=== PATIENT | male | born 1965 | race Caucasian/White ===

== ENCOUNTER 2016-06-12 11:13 | Emergency (ER) | payer BC, OTHER ==
[2016-06-12 11:51] VITALS: BP 183/101
--- NOTE | 2016-06-12 12:23 | UC ---
Abdominal Pain Male HPI - HPI Summary HPI Summary: right side flank pain x 5 days DX WITH KIDNEY STONES AT [facility]. HAVING A FOLLOW UP WITH UROLOGIST IN FEW WEEKS CONT. TO HAVE PAIN , NO FEVER, NO CHILLS, - History of Current Complaint Chief Complaint: UCGU Stated Complaint: PAIN WITH KIDNEY STONE Time Seen by Provider: 06/12/16 11:52 Hx Obtained From: Patient Onset/Duration: Gradual Onset, Lasting Days - 5, Still Present Timing: Constant Severity Initially: Moderate Severity Currently: Moderate Location: Other - RIGHT FLANK Radiates: No Radiates to: Back Character: Aching, Colicy Aggravating Factor(s):: Nothing Alleviating Factor(s): Nothing Associated Signs And Symptoms: Positive: Diaphoresis, Nausea. Negative: Fever, Cough, Chest Pain, Dizzy, Back Pain, Constipation, Blood in Stool, Urinary Symptoms, Decreased Appetite, Vomiting - Allergies/Home Medications Allergies/Adverse Reactions: Allergies Allergy/AdvReac Type Severity Reaction Status Date / Time No Known Allergies Allergy Verified 06/12/16 11:48 Home Medications: Home Medications Hydrocodone-Acetaminophen [Lorcet 5-325 mg] 1 tab PO Q4H PRN 06/12/16 [History Confirmed 06/12/16] Tamsulosin CAP* [Flomax CAP*] 0.4 mg PO DAILY 06/12/16 [History Confirmed ] PMH/Surg Hx/FS Hx/Imm Hx Cardiovascular History Of: Reports: Hypertension - Surgical History Surgical History: Yes Surgery Procedure, Year, and Place: Inguinal Herniorrhaphy as an - Family History Known Family History: Positive: Hypertension - Social History Alcohol Use: Rare Substance Use Type: None Smoking Status (MU): Never Smoked Tobacco Review of Systems Constitutional: Negative Skin: Negative Eyes: Negative ENT: Negative Respiratory: Negative Cardiovascular: Negative Gastrointestinal: Abdominal Pain All Other Systems Reviewed And Are Negative: Yes Physical Exam Triage Information Reviewed: Yes Appearance: Pain Distress, Obese Vital Signs: Initial Vital Signs Temp 97.3 F 06/12/16 11:43 Pulse 100 06/12/16 11:43 Resp 20 06/12/16 11:43 BP 183/101 06/12/16 11:43 Pulse Ox 100 06/12/16 11:43 Vital Signs Reviewed: Yes Eyes: Positive: Conjunctiva Clear ENT: Positive: Normal ENT inspection, Hearing grossly normal, Pharynx normal Neck: Positive: Supple, Nontender, No Lymphadenopathy Respiratory: Positive: Chest non-tender, Lungs clear, Normal breath sounds Cardiovascular: Positive: RRR, No Murmur, Pulses Normal Abdomen Description: Positive: Nontender, Soft. Negative: CVA Tenderness (R), CVA Tenderness (L), Distended, Guarding Bowel Sounds: Positive: Present Abd Pain Male Course/Dx - Course Course Of Treatment: WILL REFILL HYDROCODON FOR PAIN. FOLLOW UP WITH UROLOGIST. HTN : WILL START LISINOPRIL 20 MG DAILY. FOLLOW UP WITH YOUR PCP IN 10 DAYS - Differential Dx/Clinical Impression Provider Diagnoses: KIDNEY STONE. HYPERTENSION Discharge - Discharge Plan Condition: Stable Disposition: HOME Prescriptions: HYDROcodone/ACETAMIN 5-325 MG* [[place] 5-325 TAB*] 1 tab PO Q6H PRN #30 tab MDD 4 PRN Reason: Pain Lisinopril [Zestril 20 MG-] 20 mg PO DAILY #30 tab Patient Education Materials: Kidney Stones (ED), Hypertension (ED)
== END 2016-06-12 12:32 | disposition home or self-care (01) ==
LOC: UCCORT 11:13
DX: N20.0 Calculus of kidney (principal); Z87.442 Personal history of urinary calculi; I10 Essential (primary) hypertension
CPT/HCPCS: 81003; 87086; 99212; G0463

== ENCOUNTER 2016-07-15 10:55 | Day surgery (SDC) | payer BC ==
--- NOTE | 2016-07-11 22:00 | HP ---
ADMITTING HISTORY AND PHYSICAL: DATE OF ADMISSION: 07/15/16 AGE: 50 years, male. ADMISSION DIAGNOSES: 1. Calculus, right proximal ureter. 2. History of right flank pain. 3. Left renal calculus. PLANNED PROCEDURE: Shockwave lithotripsy of right ureteral calculus, possible right stent insertion. SURGEON: Dr. Laurent. HISTORY OF PRESENT ILLNESS: Dimas Álvarez is a 50-year-old gentleman with a history of renal calculi. He had right-sided abdominal and right flank pain and was initially evaluated in [place]. CT scan at that time revealed a 6 mm calculus at the right ureteropelvic junction with mild right hydronephrosis and a nonobstructing left renal calculus. He has been managed conservatively and continues to have a 6 to 7 mm calculus in the proximal right ureter and is now being brought in for management of the same. At some point later on, he will require lithotripsy for the left renal calculus also. PAST MEDICAL HISTORY: Significant for: 1. Hypertension. 2. Renal calculi. PAST SURGICAL HISTORY: Significant for right inguinal hernia surgery as an . MEDICATIONS ON ADMISSION: 1. Lisinopril 20 mg a day. 2. Hydrocodone p.r.n. ALLERGIES: No known drug allergies. FAMILY HISTORY: He has 2 siblings with kidney stones. SMOKING HISTORY: He is a nonsmoker. REVIEW OF SYSTEMS: He denies any chest pain or shortness of breath. There is no history of diabetes mellitus. He is currently being further evaluated by Dr. Rothman for his hypertension, which was poorly controlled when I initially saw him, but actually he was better on his subsequent visit. PHYSICAL EXAMINATION VITAL SIGNS: Reveals a blood pressure of 130/76, pulse of 109 per minute, regular, oxygen saturation 98%. LUNGS: Clear bilaterally. CARDIOVASCULAR: Regular rate and rhythm. S1 and S2. ABDOMEN: Soft with mild right flank tenderness. IMPRESSION: A 50-year-old gentleman with a calculus in the right proximal ureter. Planned procedure is shockwave lithotripsy of right ureteral calculus, possible right stent insertion. CC: Dr. Rothman* [id number]/[facility] #: [id number] [facility]
[~2016-07-15 10:55] MED LIST: Buffered Lidocaine 1% SYRIN* 5 ML/SYR SYRINGE INTRADERM ONE; Famotidine IV* 10 MG/ML 2 ML (20 mg) IV ONE; Metoclopramide TAB* 10 MG PO ONE
[2016-07-15] MEDS ORDERED: Famotidine IV* 10 MG/ML 2 ML (20 mg) ONE (11:19)
[2016-07-15] MEDS ORDERED: Metoclopramide TAB* 10 MG ONE (11:19)
[2016-07-15] MEDS ORDERED: Buffered Lidocaine 1% SYRIN* 5 ML/SYR SYRINGE ONE (11:19)
[2016-07-15] MEDS ORDERED: cefTRIAXone(*) 2 GM ADDV.VIAL IVPB ONE (11:19)
--- NOTE | 2016-07-15 11:41 | RAD ---
HISTORY: Shockwave lithotripsy COMPARISONS: July 03, 2016 VIEWS: Frontal views of the abdomen. FINDINGS: BOWEL: There is a nonspecific bowel gas pattern, with nondilated small bowel gas noted. Again noted are small calculi overlying the left renal parenchymal shadow measuring up to 0.4 cm. CALCULI: These are stable. There is a calculus overlying the right L4 transverse process measuring 0.5 cm which may represent a distal right ureteral stone BONES AND SOFT TISSUES: There are no osseous abnormalities. OTHER FINDINGS: The lung bases are clear. There is no subphrenic gas. IMPRESSION: LEFT NEPHROLITHIASIS WITH QUESTIONABLE DISTAL RIGHT URETERAL STONE
[2016-07-15] MEDS ORDERED: Midazolam* 1 MG/ML 5 ML VIAL (5 MG) ONE (12:40)
[2016-07-15] MEDS ORDERED: Propofol* 10 MG/ML 20 ML BTL IV PUSH ONE (12:40)
[2016-07-15] MEDS ORDERED: Ketorolac INJ* 30 MG/ML 1 ML VIAL ONE (12:40)
[2016-07-15] MEDS ORDERED: Ondansetron INJ* 2 MG/ML VIAL ONE (12:40)
[2016-07-15] MEDS ORDERED: KETAMINE HCL* 50 MG/ML 10 ML VIAL ONE (12:40)
[2016-07-15] MEDS ORDERED: Lidocaine 2% PF * 5 ML VIAL ONE (12:40)
[2016-07-15] MEDS ORDERED: Dexamethasone IV* 4 MG/ML 1 ML (4 MG) ONE (12:40)
[2016-07-15] MEDS ORDERED: fentaNYL* 50 MCG/ML 2 ML VIAL (100 MCG VIAL) ONE ×2 (12:40→13:57)
[2016-07-15 15:48] VITALS: BP 143/96
--- NOTE | 2016-07-15 17:19 | RAD ---
INDICATION: Right ureteral calculus COMPARISON: Similar examination acquired the same day at 1156 hours TECHNIQUE: 3 views the abdomen were obtained at 1620 hours. FINDINGS: Calcification identified in the previous radiograph overlying the right renal collecting system and/or proximal ureter are not seen today. There are no definite calcifications overlying the left renal collecting system or ureter. IMPRESSION: INTERVAL REMOVAL OF RIGHT-SIDED RENAL CALCULI IDENTIFIED ON PREOPERATIVE KUB.
--- NOTE | 2016-07-16 15:58 | OP ---
OPERATIVE REPORT: DATE OF OPERATION: 07/15/16 DATE OF : [birth year] AGE: 50 years. SEX: Male. SURGEON: Ousmane Laurent MD ANESTHESIOLOGIST: Dr. Gandhi ANESTHESIA: General. PRE-OP DIAGNOSIS: Calculus, right proximal ureter. POST-OP DIAGNOSIS: Calculus, right proximal ureter. OPERATIVE PROCEDURES: Shockwave lithotripsy of right ureteral calculus. COMPLICATIONS: None. POSTOPERATIVE CONDITION: Stable. INDICATION: Dimas Álvarez is a 50-year-old gentleman who had initially been evaluated in [facility] over a month ago and was noted to have a 6 mm calculus in the right proximal ureter. He has had s ubsequent imaging since then including x-rays and ultrasound, which revealed a persistent 6 mm calcu carmel in the right proximal ureter in addition to a nonobstructing calculus in the left kidney. He is now being brought in for management of the right ureteral calculus. DESCRIPTION OF PROCEDURE: After induction of general anesthesia, the patient was placed on lithotri psy table in supine position. The calculus in the right proximal ureter was visualized and shockwave lithotripsy was commenced at a rate of 90 shocks per minute. Periodic imaging revealed good locali zation and a total of 1600 shocks were administered. The plan is to obtain a postoperative x-ray to assess the degree of fragmentation. The patient tolerated the procedure satisfactorily and was tra nsferred back to recovery area in stable condition. [id number]/[facility] #: [id number]
== END 2016-07-15 15:55 | disposition home or self-care (01) ==
LOC: OR 10:55
PROVIDERS: ATTEND Urology
DX: N13.2 Hydronephrosis with renal and ureteral calculous obstruction (principal); I10 Essential (primary) hypertension; R00.0 Tachycardia, unspecified
CPT/HCPCS: 74000; A9270-GY; J0696; J1100; J1580; J1885; J2250; J2405; J2704; J3010

== ENCOUNTER 2018-06-28 12:15 | Emergency (ER) | payer BC, OTHER ==
[2018-06-28 13:02] VITALS: BP 180/120
--- NOTE | 2018-06-28 13:21 | UC ---
Back Pain HPI - HPI Summary HPI Summary: RIGHT BACK PAIN , RADIATES AT TIMES TO FRONT. NO NUMBNESS OR TINGLING OF LEG. PAIN BEGAN EARLIER THIS WEEK WHEN HE BENT OVER TO PICK A PIECE OF PAPER. PAIN IMPROVED FOR A DAY OR TWO. WORSE THIS MORNING. PT HAS HX OF A HERNIATED LUMBAR DISC. - History of Current Complaint Chief Complaint: UCBackPain Stated Complaint: BACK SPASMS Time Seen by Provider: 06/28/18 12:47 Hx Obtained From: Patient Onset/Duration: Sudden Onset, Lasting Days Timing: Constant Severity Initially: Severe Severity Currently: Severe Pain Intensity: 10 Aggravating Factor(s): Movement Alleviating Factor(s): Rest - Allergies/Home Medications Allergies/Adverse Reactions: Allergies Allergy/AdvReac Type Severity Reaction Status Date / Time No Known Allergies Allergy Verified 06/28/18 12:50 Home Medications: Home Medications Acetaminophen TAB* [Tylenol TAB*] 650 mg PO Q4H PRN 06/28/18 [History Confirmed 06/28/18] PMH/Surg Hx/FS Hx/Imm Hx Previously Healthy: Yes - Surgical History Surgical History: Yes Surgery Procedure, Year, and Place: Inguinal Herniorrhaphy as an infant. REPAIR OF FINGER LACERATION. LIPOTRIPSY. CYSTOSCOPY - Family History Known Family History: Positive: Hypertension - Social History Alcohol Use: Rare Substance Use Type: None Smoking Status (MU): Never Smoked Tobacco Review of Systems All Other Systems Reviewed And Are Negative: Yes Musculoskeletal: Positive: Arthralgia, Myalgia Is Patient Immunocompromised?: No Physical Exam Triage Information Reviewed: Yes Appearance: Well-Nourished, Pain Distress, Obese Vital Signs: Initial Vital Signs Temp 98.6 F 06/28/18 12:52 Pulse 94 06/28/18 12:52 Resp 18 06/28/18 12:52 BP 180/120 06/28/18 12:52 Pulse Ox 98 06/28/18 12:52 Vital Signs Reviewed: Yes Eye Exam: Normal ENT Exam: Normal Dental Exam: Normal Respiratory Exam: Normal Cardiovascular Exam: Normal Abdominal Exam: Normal Musculoskeletal: Positive: No Edema, ROM Limited @ - in ext of trunk Psychological Exam: Normal Skin Exam: Normal Back Pain Course/Dx - Course Course Of Treatment: hx obtained, exam performed ,meds reviewed, treated for low back spasm - Differential Dx/Diagnosis Differential Diagnosis/HQI/PQRI: Herniated Disc, Strain, Sprain Provider Diagnosis: Spasm of muscle of lower back Discharge - Sign-Out/Discharge Documenting (check all that apply): Patient Departure All imaging exams completed and their final reports reviewed: No Studies - Discharge Plan Condition: Stable Disposition: HOME Prescriptions: Cyclobenzaprine TAB* [Flexeril 10 MG TAB*] 10 mg PO TID PRN #21 tab PRN Reason: Spasms Patient Education Materials: Muscle Spasm (ED) Referrals: No Primary Care Phys,NOPCP [Primary Care Provider] - Additional Instructions: 1. take the medication as prescribed. 2. heat and stretch and rest as needed. 3. Follow up if not improving with this treatment. - Billing Disposition and Condition Condition: STABLE Disposition: Home
== END 2018-06-28 13:24 | disposition home or self-care (01) ==
LOC: UCCORT 12:15
DX: M62.830 Muscle spasm of back (principal); M51.26 Other intervertebral disc displacement, lumbar region
CPT/HCPCS: 99212; G0463

== ENCOUNTER 2019-04-19 15:28 | Emergency (ER) | payer BC, OTHER ==
[2019-04-19 16:29] VITALS: BP 147/98
[2019-04-19 16:42] LABS: Influenza A Molecular POSITIVE (Negative)
--- NOTE | 2019-04-19 16:58 | UC ---
FLU HPI - HPI Summary HPI Summary: 52-year-old male presents with 2 day history of general malaise, fatigue, body aches, nasal congestion, bilateral ear fullness, sore throat, and a dry nonproductive cough. No measured fever but reports some occasional chills. States had some cold-like symptoms last week that had subsided and he had been feeling well for approximately 2-3 days before onset of current symptoms. Denies ear pain or discharge, dysphagia, chest pain, shortness of breath, abdominal pain, nausea, vomiting, diarrhea. - History of Current Complaint Chief Complaint: UCGeneralIllness Stated Complaint: COUGH/CONGESTION/EARS PLUGGED Time Seen by Provider: 04/19/19 16:38 Hx Obtained From: Patient Pain Intensity: 3 - Allergy/Home Medications Allergies/Adverse Reactions: Allergies Allergy/AdvReac Type Severity Reaction Status Date / Time No Known Allergies Allergy Verified 04/19/19 16:30 Home Medications: Home Medications Ibuprofen TAB* [Advil TAB*] 600 mg PO Q6H PRN 05/18/14 [History Confirmed ] Acetaminophen TAB* [Tylenol TAB*] 650 mg PO Q4H PRN 06/28/18 [History Confirmed 04/19/19] Benzonatate CAP* [Tessalon 100 MG CAP*] 100 mg PO TID PRN #21 cap 04/19/19 [Rx] Dm/Acetaminophen/Doxylamine [Night Time Cold & Flu Rel 15-6.25-325 mg] 1 cap PO BEDTIME PRN 04/19/19 [History Confirmed 04/19/19] Naproxen [Naproxen 250 mg tab] 750 mg PO DAILY 04/19/19 [History Confirmed 04/19] Oseltamivir CAP* [Tamiflu CAP*] 75 mg PO BID #10 cap 04/19/19 [Rx] PMH/Surg Hx/FS Hx/Imm Hx Previously Healthy: Yes - Denies significant PMH - Surgical History Surgical History: Yes Surgery Procedure, Year, and Place: Inguinal Herniorrhaphy as an infant. REPAIR OF FINGER LACERATION. LIPOTRIPSY. CYSTOSCOPY - Family History Known Family History: Positive: Hypertension - Social History Occupation: Employed Full-time Lives: With Family Alcohol Use: Rare Substance Use Type: None Smoking Status (MU): Never Smoked Tobacco Review of Systems All Other Systems Reviewed And Are Negative: Yes Constitutional: Positive: Chills, Fatigue. Negative: Fever Eyes: Negative: Drainage, Eye Redness ENT: Positive: Sore Throat, Nasal Discharge, Sinus Congestion. Negative: Ear Ache, Sinus Pain/Tenderness Respiratory: Positive: Cough. Negative: Shortness Of Breath Cardiovascular: Negative: Palpitations, Chest Pain Gastrointestinal: Negative: Abdominal Pain, Vomiting, Diarrhea, Nausea Genitourinary: Positive: Negative Musculoskeletal: Positive: Myalgia Neurological/Mental Status: Positive: Negative Is Patient Immunocompromised?: No Physical Exam - Summary Physical Exam Summary: GENERAL APPEARANCE: Alert and cooperative obese male who appears to be in no acute distress. EYES: Conjunctiva clear. No drainage. EARS: External auditory canals and tympanic membranes clear, hearing grossly intact. NOSE: Mild to moderate nasal congestion. No nasal discharge. THROAT: Mild pharyngeal erythema without tonsilar inflammation, swelling, exudate, or lesions. Uvula midline. NECK: Neck supple, non-tender without lymphadenopathy. CARDIAC: Normal S1 and S2. No S3, S4 or murmurs. Rhythm is regular. There is no peripheral edema, cyanosis or pallor. Extremities are warm and well perfused. Capillary refill is less than 2 seconds. Peripheral pulses intact. LUNGS: Clear to auscultation without rales, rhonchi, wheezing or diminished breath sounds. Try nonproductive cough. ABDOMEN: Positive bowel sounds. Soft, nondistended, nontender. No guarding or rebound. No masses or hepatosplenomegally. MUSKULOSKELETAL: ROM intact to all extremities. No joint erythema or tenderness. Normal muscular development. Normal gait. SKIN: Skin normal color, texture and turgor with no lesions or eruptions. Triage Information Reviewed: Yes Vital Signs: Initial Vital Signs Temp 97.6 F 04/19/19 16:24 Pulse 109 04/19/19 16:24 Resp 16 04/19/19 16:24 BP 147/98 04/19/19 16:24 Pulse Ox 99 04/19/19 16:24 Vital Signs Reviewed: Yes Flu Course/Dx - Course Course Of Treatment: 52-year-old male presents with 2 day history of general malaise, fatigue, body aches, nasal congestion, bilateral ear fullness, sore throat, and a dry nonproductive cough. No measured fever but reports some occasional chills. States had some cold-like symptoms last week that had subsided and he had been feeling well for approximately 2-3 days before onset of current symptoms. Denies ear pain or discharge, dysphagia, chest pain, shortness of breath, abdominal pain, nausea, vomiting, diarrhea. Afebrile. Mildly hypertensive and tachycardic otherwise vitals stable. Patient and mild to moderate nasal congestion, normal TMs, mild pharyngeal erythema without tonsillar swelling or exudate, no cervical lymphadenopathy, clear bilateral breath sounds, dry nonproductive cough, and otherwise unremarkable exam. Rapid flu test was positive for influenza A. Reviewed results with the patient. Discussed with patient that I suspect his cold-like symptoms last week are unrelated to his current symptoms and that we could try treating with Tamiflu considering that his current symptoms did start within the last 24-48 hours. I did review reviewed the risks and benefits of treating with Tamiflu and patient is electing to start at this time. I have additionally recommended symptomatic treatment including Tessalon Perles 1 capsule every 8 hours as needed for cough. He is to return here or follow-up with his primary care provider in 5-7 days if symptoms are not improving. Anticipatory guidance and warning symptoms were reviewed with the patient. Verbalizes understanding and agrees with plan of care. - Differential Dx/Diagnosis Differential Diagnosis/HQI/PQRI: Bronchitis, Influenza, Pneumonia, Upper Respiratory Infection Provider Diagnosis: Influenza A Discharge ED - Sign-Out/Discharge Documenting (check all that apply): Patient Departure All imaging exams completed and their final reports reviewed: No Studies - Discharge Plan Condition: Stable Disposition: HOME Prescriptions: Benzonatate CAP* [Tessalon 100 MG CAP*] 100 mg PO TID PRN #21 cap PRN Reason: Cough Oseltamivir CAP* [Tamiflu CAP*] 75 mg PO BID #10 cap Patient Education Materials: Influenza (ED) Referrals: No Primary Care Phys,NOPCP [Primary Care Provider] - Additional Instructions: Your flu test in the clinic today was positive for influenza A. Start Tamiflu 1 capsule twice a day for 5 days. Get plenty of rest. Drink plenty of fluids to avoid dehydration especially if you are running any fever. Take over the counter acetaminophen (Tylenol) or ibuprofen (Advil, Motrin) according to directions as needed for pain or fever. Take Tessalon Perles 1 cap every 8 hours as needed for cough. Use salt water gargles several times a day if you have a sore throat. You may also use Chloraseptic spray or Cepacol lonzenges according to directions which contain a numbing medication and can provide some temporary relief from your sore throat. Follow up with your primary care provider in 7 days if symptoms persist. Seek immediate medical attention in the emergency room if you have fever greater than 100.5 F despite taking acetaminophen or ibuprofen, have chest pain , difficulty breathing, are unable to swallow, or have any worsening of symptoms. - Billing Disposition and Condition Condition: STABLE Disposition: Home - Attestation Statements Provider Attestation: I was available for consult. This patient was seen by the LINDSAY. The patient was not presented to, seen by, or examined by me. -Anna
== END 2019-04-19 17:06 | disposition home or self-care (01) ==
LOC: UCCORT 15:28
DX: J10.1 Influenza due to other identified influenza virus with other respiratory manifestations (principal)
CPT/HCPCS: 99212; G0463